=== PATIENT | female | born 1975 | race Caucasian/White ===

== ENCOUNTER 2021-07-14 07:20 | Day surgery (SDC) | payer MEDICAID ==
[~2021-07-14 07:20] MED LIST: Lactated Ringers 1,000 ML IV SCH; Sodium Chloride 0.9% 10 ML Syringe FLUSH PRN; Sodium Chloride 0.9% 2.5 ML Syringe FLUSH PRN; Sodium Chloride 0.9% 20 ML SDV IV PRN
[2021-07-14] MEDS ORDERED: Propofol 200 MG/20 ML SDV ONE (08:35)
[2021-07-14] MEDS ORDERED: fentaNYL 100 MCG/2 ML SDV ONE (08:36)
[2021-07-14] MEDS ORDERED: Ketamine 500 mg/10 ML MDV ONE (09:12)
[2021-07-14] MEDS ORDERED: Glycopyrrolate 0.2 MG/ML SDV ONE (09:20)
[2021-07-14] MEDS ORDERED: Lidocaine 2% 5 ML SDV ONE (09:20)
== END 2021-07-14 10:06 | disposition home or self-care (01) ==
LOC: MW.SDS 07:20
PROVIDERS: ATTEND Surgery
DX: Z12.11 Encounter for screening for malignant neoplasm of colon (principal); K20.90 Esophagitis, unspecified without bleeding; K31.89 Other diseases of stomach and duodenum; E66.9 Obesity, unspecified; Z88.2 Allergy status to sulfonamides; Z79.899 Other long term (current) drug therapy; Z90.49 Acquired absence of other specified parts of digestive tract; Z98.890 Other specified postprocedural states; Z68.43 Body mass index [BMI] 50.0-59.9, adult
CPT/HCPCS: 43239; 45378; 81025; J2704; J3010; J3490; J7120; 00813

== ENCOUNTER 2021-07-20 15:02 | Emergency (ER) | payer MEDICAID ==
[2021-07-20] MEDS ORDERED: Ondansetron 4 MG/2 ML SDV IVPUSH ONE (15:16)
[2021-07-20] MEDS ORDERED: LORazepam 2 MG/ML SDV IVPUSH ONE (15:16)
[2021-07-20] MEDS ORDERED: Ketorolac 30 MG/ML SDV IVPUSH ONE (15:16)
[2021-07-20] MEDS ORDERED: Sodium Chloride 0.9% 1,000 ML IV ONE (15:16)
== END 2021-07-20 16:49 | disposition home or self-care (01) ==
LOC: MW.ED 15:02
DX: R51.9 Headache, unspecified (principal); I10 Essential (primary) hypertension; E03.9 Hypothyroidism, unspecified; Z90.49 Acquired absence of other specified parts of digestive tract; Z88.2 Allergy status to sulfonamides; Z79.899 Other long term (current) drug therapy
CPT/HCPCS: 70450; 96374; 96375; 99284; J1885; J2060; J2405; J7030

== ENCOUNTER 2023-02-15 08:50 | Emergency (ER) | payer MEDICAID ==
[2023-02-15] MEDS ORDERED: Ketorolac 30 MG/ML SDV IVPUSH ONE (09:19)
[2023-02-15] MEDS ORDERED: methylPREDNISolone Sodium Succinate 125 MG/2 ML SDV IVPUSH ONE (09:19)
== END 2023-02-15 11:59 | disposition home or self-care (01) ==
LOC: MW.ED 08:50
DX: M54.32 Sciatica, left side (principal); I10 Essential (primary) hypertension; E03.9 Hypothyroidism, unspecified; E66.9 Obesity, unspecified; Z88.2 Allergy status to sulfonamides; Z79.899 Other long term (current) drug therapy; Z68.41 Body mass index [BMI] 40.0-44.9, adult
CPT/HCPCS: 36415; 72131; 84703; 93971; 96374; 96375; 99284; J1885; J2930; J3360

== ENCOUNTER 2023-03-21 12:15 | Emergency (ER) | payer MEDICAID ==
[2023-03-21] MEDS ORDERED: Bacitracin Oint 1 GM U/D Packet TOP ONE (12:21)
[2023-03-21] MEDS ORDERED: Amoxicillin/Clavulanate K 875-125 MG Tab PO ONE (12:21)
[2023-03-21] MEDS ORDERED: Diphtheria,Pertussis(Acell),Tetanus Vaccine 0.5 ML Syringe IM ONE (12:21)
== END 2023-03-21 13:15 | disposition home or self-care (01) ==
LOC: MW.ED 12:15
DX: S91.052A Open bite, left ankle, initial encounter (principal); S61.250A Open bite of right index finger without damage to nail, initial encounter; I10 Essential (primary) hypertension; E03.9 Hypothyroidism, unspecified; E66.9 Obesity, unspecified; Z68.41 Body mass index [BMI] 40.0-44.9, adult; Z23 Encounter for immunization; Z88.2 Allergy status to sulfonamides; Z79.899 Other long term (current) drug therapy; W54.0XXA Bitten by dog, initial encounter
CPT/HCPCS: 90471; 90715; 99283; A9270

== ENCOUNTER 2024-09-18 07:46 | Day surgery (SDC) | payer MEDICAID ==
[2024-09-18] MEDS ORDERED: Albuterol 0.083% 2.5 MG/3 ML Neb Soln NEB PRN (07:52)
[2024-09-18] MEDS ORDERED: Phenylephrine HCl In 0.9% NaCl 1 MG/10 ML Syringe IVPUSH PRN (07:52)
[2024-09-18] MEDS ORDERED: fentaNYL 50 MCG/ML SDV IVPUSH PRN (07:52)
[2024-09-18] MEDS ORDERED: Metoclopramide 10 MG/2 ML SDV IVPUSH PRN (07:52)
[2024-09-18] MEDS ORDERED: Morphine 2 MG/ML SYRINGE IVPUSH PRN (07:52)
[2024-09-18] MEDS ORDERED: Naloxone 0.4 MG/ML SDV IVPUSH PRN (07:52)
[2024-09-18] MEDS ORDERED: HYDROmorphone 1 MG/ML Syringe IVPUSH PRN (07:52)
[2024-09-18] MEDS ORDERED: Ondansetron 4 MG/2 ML SDV IVPUSH PRN (07:52)
[2024-09-18] MEDS: Lactated Ringers 1,000 ML IV SCH (08:13)
[2024-09-18] MEDS ORDERED: Propofol 200 MG/20 ML SDV ONE (08:28)
[2024-09-18] MEDS ORDERED: dexmedeTOMIDine HCl 200 MCG/2 ML SDV ONE (08:28)
[2024-09-18] MEDS ORDERED: fentaNYL 100 MCG/2 ML SDV ONE (08:28)
[2024-09-18] MEDS ORDERED: Sodium Chloride 0.9% 20 ML ONE (08:29)
[2024-09-18] MEDS ORDERED: Rocuronium Bromide 50 MG/5 ML Syringe ONE (08:34)
[2024-09-18] MEDS ORDERED: Dexamethasone 4 MG/ML 5 ML MDV ONE (09:30)
[2024-09-18] MEDS ORDERED: Sugammadex Sodium 200 MG/2 ML VIAL IV ONE (09:30)
[2024-09-18] MEDS ORDERED: Ketorolac 30 MG/ML SDV ONE (09:30)
[2024-09-18] MEDS ORDERED: Ondansetron 4 MG/2 ML SDV ONE (09:30)
== END 2024-09-18 10:54 | disposition home or self-care (01) ==
LOC: MW.SDS 07:46
PROVIDERS: ATTEND Obstetrics & Gynecology
DX: N85.8 Other specified noninflammatory disorders of uterus (principal); I10 Essential (primary) hypertension; E66.9 Obesity, unspecified; Z88.2 Allergy status to sulfonamides; Z79.84 Long term (current) use of oral hypoglycemic drugs; Z79.899 Other long term (current) drug therapy; Z79.890 Hormone replacement therapy; Z68.42 Body mass index [BMI] 45.0-49.9, adult
CPT/HCPCS: 57505; 58558; C1729; J1100; J1885; J2405; J2704; J3010; J7120; 00952; J3490